=== PATIENT | male | born 1965 | race Caucasian/White ===

== ENCOUNTER → 2021-06-01 | Outpatient (CLI) | payer OTHER ==
[~2021-06-01] VITALS: Ht 177.8 cm; Wt 104.3 kg
[~2021-06-01] MED LIST: CARVEDILOL12.5 MG PO; GABAPENTIN600 M1 PO; GLIPIZIDE 10 MG10 MG PO; HYDROCODON-ACE1 EAC7 PO; LISINOPRIL20 MG PO; NORTRIPTYLINE H25 M3 PO; OMEPRAZOLE40 MG PO; TESTONE CI200 MG/1 M IM; ULTRAM 50MG TAB50 MG PO; ZOCOR 20 MG TAB20 M1 PO
[2021-06-01 12:58] VITALS: BP 154/96
--- NOTE | 2021-06-01 13:20 | NUR ---
[facility] Assessment: 1. History of Osteoarthritis: HANDS KNEES History of Rheumatoid Arthritis: 2. Height: 5 ft. 10 in. 177.8 cm. Weight: 230.0 lb. oz. 104.328 kg. Patient's BMI: 33.0 3. Vital Signs: BP: 154/96 Pulse: 105 Resp: 16 Temp: 02 Sat: 100 ECG Mon: 4. Pain Intensity: 3 5. Fall Risk: Dizziness: N Needs help standing or walking: Y Fallen in the last 3 months: N Fall risk comments: 6. Patient on Blood Thinner: None 7. History of Hypertension: Y 8. Opioid Therapy greater than 6 weeks: Opiate Contract Signed: 9. Risk Assessment Tool Provided: 3 LOW RISK 10. Functional Assessment Tool: 48/70 11. Recreational Drug Use: Current within past 3 mos Drug Type: MARIJUANA Tobacco Use: Former Smoker Tobacco Type: Cigarettes Amount or Packs/day: How Many Years: Alcohol Use: Yes Frequency: Weekly Quant: 1
== END ==
LOC: PAIN 07:15
PROVIDERS: ATTEND Anesthesiology Pain Medicine
DX: M79.604 Pain in right leg (principal); G54.6 Phantom limb syndrome with pain; E11.42 Type 2 diabetes mellitus with diabetic polyneuropathy; K21.9 Gastro-esophageal reflux disease without esophagitis; Z91.048 Other nonmedicinal substance allergy status; Z79.899 Other long term (current) drug therapy